=== PATIENT | male | born 1940 | race Caucasian/White ===

== ENCOUNTER 2017-01-13 21:06 | Emergency (ER) | payer OTHER, MEDICARE ==
[~2017-01-13] VITALS: Ht 190.5 cm; Wt 75.2 kg
[~2017-01-13 21:06] MED LIST: AMLODIPINE BESY10 MG PO; ASPIRIN325 MG PO; ASPIRIN81 M2 PO; CALCIO DEL MAR500 MG PO; CO Q-10200 MG PO; DOCUSATE SODIU100 MG PO; ENALAPRIL MALEA20 MG PO; FISH OIL 1,0001 EAC7 PO; GLUCOSAMINE1000 MG PO; HYDROCODON-ACE1 EAC6 PO; HYDROCODON-ACE1 EAC9 PO; LIPITOR40 MG PO; MELOXICAM15 MG PO; MORPHINE SULFAT15 M1 PO; NITROGLYCERIN0.4 MG SL; OPTIFLEX-C400 MG PO; PROTONIX40 MG PO; SUPER B MAXI C0.4 MG PO; TERAZOSIN HCL1 MG PO; VITAMIN C1000 MG PO; VITAMIN D-32000 UNI2 PO; VOLTAREN 1% GE100 GM TP
[2017-01-13 21:37] LABS: HEMATOCRIT 41.1 % (38.0-50.0); MCH 31.6 PG (29.0-34.0); MCHC 32.8 G/DL (30.0-36.0); MCV 96.3 FL (86-99); MEAN PLAT.VOLUME 9.4 uM^3 (9.0-12.4); PLATELET COUNT 213 K/uL (156-360); RBC DIS.WIDTH-SD 49.8 % (39-53); RED BLOOD COUNT 4.27 M/uL (4.00-5.50); WHITE BLOOD COUNT 11.3 K/uL (4.1-10.2)
[2017-01-13 21:50] LABS: CHLORIDE 105 mEq/L (99-109); POTASSIUM 3.6 mEq/L (3.7-5.4); SODIUM 141 mEq/L (136-147)
[2017-01-13 21:52] LABS: GLUCOSE 105 mg/dL (70-99)
[2017-01-13 21:53] LABS: ANION GAP 9 MEQ/L (2-14)
[2017-01-13 21:56] LABS: GFR ESTIMATE (CALCULATED) > 59 mL/min/
[2017-01-13 21:57] LABS: UREA NITROGEN (BUN) 11 mg/dL (9-23)
[2017-01-13 22:04] LABS: TROP-I INTERPRETATION NEGATIVE; TROPONIN-I 0.02 ng/mL (0.0-0.30)
[2017-01-13] MEDS ORDERED: PROAIR HFA8.5 GM IH (22:37)
[2017-01-13 23:09] VITALS: BP 110/56
== END 2017-01-13 23:12 | disposition left against medical advice (07) ==
LOC: EME → EDBD 21:06 → EME 21:06
PROVIDERS: Emergency Medicine
DX: R07.9 Chest pain, unspecified (principal); I10 Essential (primary) hypertension; Z96.652 Presence of left artificial knee joint; Z96.641 Presence of right artificial hip joint; F17.200 Nicotine dependence, unspecified, uncomplicated; Z79.82 Long term (current) use of aspirin
CPT/HCPCS: 71010; 80048; 84484; 85027; 93005; 94640; 99281; 99285